=== PATIENT | male | born 1975 | race Caucasian/White ===

== ENCOUNTER 2017-09-24 21:58 | Inpatient (IN) | payer OTHER ==
[~2017-09-24] VITALS: Ht 188 cm; Wt 92.3 kg
[2017-09-25 08:08] VITALS: BP 134/71
[2017-09-25 18:15] VITALS: BP 145/89
[2017-09-25 23:51] VITALS: BP 136/85
[2017-09-26 04:04] VITALS: BP 127/77
[2017-09-26 06:09] LABS: HEMATOCRIT 41.6 % (38.0-50.0); MCH 31.7 PG (29.0-34.0); MCHC 34.4 G/DL (30.0-36.0); MCV 92.2 FL (86-99); MEAN PLAT.VOLUME 8.5 uM^3 (9.0-12.4); PLATELET COUNT 228 K/uL (156-360); RBC DIS.WIDTH-CV 12.4 % (11.8-14.6); RED BLOOD COUNT 4.51 M/uL (4.00-5.50)
[2017-09-26 06:34] LABS: ANION GAP 6 MEQ/L (2-14); CHLORIDE 103 MEQ/L (99-109); GFR ESTIMATE (CALCULATED) > 59 mL/min/; GLUCOSE 94 mg/dL (70-99); POTASSIUM 3.9 MEQ/L (3.7-5.4); SAMPLE HEMOLYSIS CHECK 0; SAMPLE ICTERIC CHECK 0; SAMPLE LIPEMIA CHECK 0; SODIUM 137 MEQ/L (136-147); UREA NITROGEN (BUN) 8 mg/dL (9-23)
[2017-09-26 07:25] VITALS: BP 130/69
[2017-09-26 14:21] VITALS: BP 135/83
[2017-09-26 19:59] VITALS: BP 136/66
[2017-09-26 20:45] VITALS: BP 138/72
[2017-09-27] VITALS (7 sets, daily range): BP systolic 131–155; BP diastolic 60–90
[2017-09-27 07:08] LABS: MCHC 34.4 G/DL (30.0-36.0); MCV 93.1 FL (86-99); MEAN PLAT.VOLUME 8.6 uM^3 (9.0-12.4); PLATELET COUNT 219 K/uL (156-360); RBC DIS.WIDTH-CV 12.6 % (11.8-14.6); RBC DIS.WIDTH-SD 43.3 % (39-53); RED BLOOD COUNT 4.62 M/uL (4.00-5.50); WHITE BLOOD COUNT 7.7 K/uL (4.1-10.2)
[2017-09-27 07:34] LABS: ANION GAP 8 MEQ/L (2-14); CHLORIDE 103 MEQ/L (99-109); GFR ESTIMATE (CALCULATED) > 59 mL/min/; GLUCOSE 79 mg/dL (70-99); POTASSIUM 4.2 MEQ/L (3.7-5.4); SAMPLE HEMOLYSIS CHECK 0; SAMPLE ICTERIC CHECK 0; SAMPLE LIPEMIA CHECK 0; SODIUM 139 MEQ/L (136-147); UREA NITROGEN (BUN) 9 mg/dL (9-23)
[2017-09-27] MEDS ORDERED: COLACE100 MG PO (16:18)
[2017-09-27] MEDS ORDERED: PERCOCET 5/31 TABLET PO (16:18)
[2017-09-28 00:01] VITALS: BP 138/86
[2017-09-28 08:12] VITALS: BP 159/93
== END 2017-09-28 10:30 | disposition home or self-care (01) | DRG 331 ==
LOC: ENRESERV 21:58 → 2SOUTH 09-25 07:02 → ENRESERV 09-25 15:29 → 2SOUTH 09-25 15:43 → 3EAST 09-25 17:45
PROVIDERS: Surgery
PROC: 0DBN4ZZ Excision of Sigmoid Colon, Percutaneous Endoscopic Approach (ICD-10-PCS; principal; 2017-09-25)
PROC: 0DJD8ZZ Inspection of Lower Intestinal Tract, Via Natural or Artificial Opening Endoscopic (ICD-10-PCS; principal; 2017-09-25)
PROC: 0T777DZ Dilation of Left Ureter with Intraluminal Device, Via Natural or Artificial Opening (ICD-10-PCS; principal; 2017-09-25)
PROC: 0DBP4ZZ Excision of Rectum, Percutaneous Endoscopic Approach (ICD-10-PCS; principal; 2017-09-25)
DX: K57.92 Diverticulitis of intestine, part unspecified, without perforation or abscess without bleeding (principal); K57.32 Diverticulitis of large intestine without perforation or abscess without bleeding; K59.00 Constipation, unspecified; K60.2 Anal fissure, unspecified; M54.5 Low back pain; K64.4 Residual hemorrhoidal skin tags; K63.5 Polyp of colon; F17.200 Nicotine dependence, unspecified, uncomplicated; R33.9 Retention of urine, unspecified; D18.03 Hemangioma of intra-abdominal structures
CPT/HCPCS: 71020; 80048; 85027; 86850; 86900; 86901; 88302; 88307; C1758; J0330; J1100; J1170; J1200; J1650; J1885; J2405; J2710; J2795; J3010; S0030